=== PATIENT | male | born 1950 | race Caucasian/White ===

== ENCOUNTER 2024-09-03 08:30 | Outpatient (RCR) | payer MEDICARE, OTHER, SELFPAY | END 2024-09-03 10:30 | LOC: CAR 08:30 | PROVIDERS: PCP Family Medicine Geriatric Medicine; Referring Provider Thoracic Surgery (Cardiothoracic Vascular Surgery); Visit Provider Thoracic Surgery (Cardiothoracic Vascular Surgery) | DX: Z95.1 Presence of aortocoronary bypass graft (principal) | CPT/HCPCS: 93798 ==